=== PATIENT | female | born 1935 | race Caucasian/White ===

== ENCOUNTER → 2016-08-20 | Outpatient (CLI) | payer MEDICARE ==
[~2016-08-20] MED LIST: ASPI-515 PO; CHOL200024 PO; [UNRECOGNIZED DRUG - OTHER] PO; calcium PO; flaxseed PO; magnesium PO; omega 3 PO; vitamin c PO; vitamin e PO
== END | disposition home or self-care (01) ==
LOC: ROC 15:34
PROVIDERS: ATTEND Radiology Radiation Oncology
DX: C50.911 Malignant neoplasm of unspecified site of right female breast (principal)
CPT/HCPCS: G0463